=== PATIENT | male | born 1965 | race Caucasian/White ===

== ENCOUNTER 2022-10-13 01:06 | Emergency (ER) | payer OTHER ==
[2022-10-13 01:32] VITALS: BP 120/83; PULSE 106; RESP 18; TEMP 98; BMI 34.8
[2022-10-13] MEDS ORDERED: KETOROLAC TROMETHAMINE 60 MG/2 ML VIAL IM ONE (02:35)
[2022-10-13] MEDS ORDERED: KETOROLAC TROMETHAMINE 30 MG/1 ML VIAL ONE (02:36)
== END 2022-10-13 02:50 | disposition home or self-care (01) ==
LOC: FER 01:06
PROC: 3E0233Z Introduction of Anti-inflammatory into Muscle, Percutaneous Approach (ICD-10-PCS; principal; 2022-10-13)
DX: S99.192A Other physeal fracture of left metatarsal, initial encounter for closed fracture (principal)
CPT/HCPCS: 73630-TC-LT; 99284-25

== ENCOUNTER 2023-10-14 04:21 | Emergency (ER) | payer OTHER ==
[2023-10-14 04:31] VITALS: BP 131/84; PULSE 104; RESP 18; TEMP 99.3; BMI 34.8
== END 2023-10-14 04:51 | disposition home or self-care (01) ==
LOC: FER 04:21
DX: J06.9 Acute upper respiratory infection, unspecified (principal); B34.9 Viral infection, unspecified; J34.89 Other specified disorders of nose and nasal sinuses; Z20.822 Contact with and (suspected) exposure to COVID-19
CPT/HCPCS: 0241U-QW; 99283-25